=== PATIENT | male | born 1995 | race Caucasian/White ===

== ENCOUNTER 2020-03-23 15:04 | Emergency (ER) | payer OTHER, SELFPAY ==
--- NOTE | 2020-03-23 14:56 | ECG_ITS ---
APPROVED REPORT Exam: Resting ECG HR:128 bpm ECG Measurements Heart Rate 128 AXES ID 114 P 79 QRSd 80 QRS 77 QT 290 T 14 QTc 423 <Conclusion> Sinus tachycardia Right atrial enlargement Nonspecific ST abnormality Abnormal ECG Electronically signed by : Sonny Prieto, 03/28/2020 17:14:03
[2020-03-23 15:04] VITALS: BP 159/96; PULSE 154; RESP 20; TEMP 36.8; O2SAT 100; BMI 20.3
--- NOTE | 2020-03-23 15:09 | XR_ITS ---
PROCEDURE: XR CHEST 2V CLINICAL HISTORY: cp, tachy COMPARISON: CXR2V XR chest 2V from 02/08/2019 FINDINGS: The cardiomediastinal silhouette and pulmonary vascularity are within normal limits. The lungs are clear without infiltrates, suspicious nodules, or pleural effusions. No acute bony abnormalities. IMPRESSION: No acute findings. Dictated by: Josesito Esquivel MD 03/23/2020 16:38 Electronically signed by Josesito Esquivel MD in [place] 03/23/2020 16:38
[2020-03-23 15:17] LABS: Basophils % 0.3 % (0.1-2.0); Eosinophils % 0.3 % (0.1-12.0); Hematocrit 44.8 % (42.0-52.0); Hemoglobin 16.5 g/dL (14.1-18.0); Lymphocytes # 1.7 K/mm3 (0.7-4.5); Lymphocytes % 15.9 % (10-50); Mean Corpuscular HGB Conc 36.8 g/dL (31.8-35.4); Mean Corpuscular Hemoglobin 31.3 pg (27.0-31.2); Mean Corpuscular Volume 85.1 fl (80-94); Mean Platelet Volume 7.8 fl (7.4-10.4); Monocytes # 0.5 K/mm3 (0.1-1.0); Monocytes % 4.1 % (1.7-9.3); Neutrophils # 8.7 K/mm3 (1.8-7.8); Neutrophils % 79.5 % (37.0-80.0); Platelet Count 277 K/mm3 (142-424); Red Blood Count 5.26 M/mm3 (4.60-6.20); White Blood Count 10.9 K/mm3 (4.8-10.8)
[2020-03-23 15:18] LABS: Chloride 102 mmol/L (98-107); Sodium 139 mmol/L (136-145)
[2020-03-23 15:21] LABS: Blood Urea Nitrogen 13 mg/dl (9-20); Carbon Dioxide 29 mmol/L (22.0-30.0); Creatinine Clearance Estimated 106 mL/min (50-200); Estimated Glomerular Filt Rate 104 ml/min (>60); GFR (African American) 125 ML/MIN (>60)
[2020-03-23 15:22] LABS: Calcium 10.2 mg/dl (8.4-10.2); Glucose 154 mg/dl (74-100)
[2020-03-23 15:34] VITALS: BP 155/90; PULSE 92; RESP 20; O2SAT 99
[2020-03-23 15:36] LABS: Troponin I < 0.01 ng/ml (0.00-0.034)
[2020-03-23 15:39] LABS: T4 (Thyroxine) 8.9 ug/dl (5.53-11.0)
[2020-03-23 15:40] VITALS: BP 168/105
[2020-03-23 15:53] LABS: Thyroid Stimulating Hormone 1.75 uIU/mL (0.465-4.68)
--- NOTE | 2020-03-23 16:28 | HMH.EDCP ---
ED Disposition Clinical Impression: Tachycardia Disposition: Home, Self-Care Condition on Discharge: Good Instructions: DI for Atypical Chest Pain Prescriptions: Metoprolol Succinate [Metoprolol Succinate 25mg Tablet*] 25 mg PO DAILY 30 Days #30 tab Transmission Status: Pending to [facility] Referrals: Johnathan Lao MD [Primary Care Provider] - - Critical Care Critical Care Time: No Attestation: On 03/23/20, the high probability of a clinically significant, sudden or life threatening deterioration of the following system(s) required my full and direct attention, intervention and personal management. The time I documented below is in addition to time spent performing reported procedures but includes the following listed in this critical care notation. Medical Decision Making - Medical Records Medical records reviewed: Yes: I reviewed the patient's medical records. - Lopez Inquiry Pt receiving controlled substance: No Vital Signs: 03/23/20 15:04 03/23/20 15:34 03/23/20 15:40 Temperature 98.3 F Temperature Source Oral Pulse Rate [Right] 154 H 92 H Respiratory Rate 20 20 Blood Pressure 168/105 H Blood Pressure [Right Arm] 159/96 H 155/90 H Blood Pressure Mean [Right Arm] 117 111 Blood Pressure Source [Right Arm] Automatic Cuff Blood Pressure Position [Right Arm] Sitting 02 Sat by Pulse Oximetry 100 99 Oxygen Delivery Method Room Air - Lab Data Lab results reviewed: Yes: I reviewed the patient's lab results. Lab Results 03/23/20 15:00: WBC 10.9 H, RBC 5.26, Hgb 16.5, Hct 44.8, MCV 85.1, MCH 31.3 H, MCHC 36.8 H, RDW 13.0, Plt Count 277, MPV 7.8, Neut % (Auto) 79.5, Lymph % (Auto) 15.9, Burke % (Auto) 4.1, Eos % (Auto) 0.3, Baso % (Auto) 0.3, Neut # (Auto) 8.7 H, Lymph # (Auto) 1.7, Burke # (Auto) 0.5, Eos # (Auto) 0.0, Baso # (Auto) 0.0 03/23/20 15:00: Sodium 139, Potassium 4.0, Chloride 102, Carbon Dioxide 29, Anion Gap 12.0, BUN 13, Creatinine 0.90, Estimated Creat Clear 106, Estimated GFR 104, Est GFR ( Amer) 125, Glucose 154 H, Calcium 10.2, Troponin I < 0.01, TSH 1.75, Thyroxine (T4) 8.9 Result diagrams: 03/23/20 15:00 03/23/20 15:00 Orders (Tests/Meds): ED MEDICATIONS Discontinued Medications Generic Name Dose Route Start Last Admin Trade Name Freq PRN Reason Stop Dose Admin Sodium Chloride 1,000 mls @ 999 mls/hr 03/23/20 15:15 03/23/20 15:40 Sod Chlor 0.9% 1000ml Bag IV 03/23/20 16:15 999 mls/hr .Q1H1M YUE Administration Labetalol HCl 5 mg 03/23/20 15:18 03/23/20 15:40 Labetalol 5mg/Ml 20ml Mdv IV 03/23/20 15:19 5 mg ONCE ONE Administration ORDERS Category Date Time Status XR chest 2V Stat Exams 03/23/20 15:09 Taken Troponin I Q3H Lab 03/23/20 18:15 Ordered Troponin I Q3H Lab 03/23/20 21:15 Ordered ECG Request by Dr/Nse Stat Y 03/23/20 15:09 Ordered Chest Pain HPI - General Chief Complaint: Chest Pain Stated Complaint: CP Time Seen by Provider: 03/23/20 16:00 Mode of Arrival: Ambulatory Source of Information: Patient Limitations: No Limitations Description of Symptoms (Recalled from ER Triage Doc. by RN): Pt states he began to have sharp chest pain in the center of his chest a nausea this am. - History of Present Illness HPI narrative: 24-year-old male presents with sinus tachycardia. He states that his heart rate started becoming elevated earlier today and he has had a slight fluttering and pressure sensation in his chest since then. Here in the ED his vital signs are stable but his heart rate is in the 140s. He is in sinus tachycardia. And it is stable. MD complaint: other - Related Data Previous Rx's Medication Instructions Recorded silver sulfadiazine 1 % topical 1 applic TOPICAL BID 7 Days #20 g 05/17/19 cream Metoprolol Succinate [Metoprolol 25 mg PO DAILY 30 Days #30 tab 03/23/20 Succinate 25mg Tablet*] Allergies Allergy/AdvReac Type Severity Reaction Stat
[2020-03-23 16:50] VITALS: BP 141/82; PULSE 76; RESP 20; TEMP 36.8; O2SAT 98
== END 2020-03-23 16:50 | disposition home or self-care (01) ==
PROVIDERS: Emergency Provider Family Medicine; PCP Internal Medicine Adolescent Medicine
DX: R00.0 Tachycardia, unspecified (principal); R07.9 Chest pain, unspecified; Z90.09 Acquired absence of other part of head and neck; Z79.899 Other long term (current) drug therapy
CPT/HCPCS: 71046; 80048; 84436; 84443; 84484; 85025; 93005; 96365; 96375; 99283

== ENCOUNTER 2020-05-11 14:24 | Emergency (ER) | payer OTHER, SELFPAY ==
[2020-05-11 16:03] VITALS: BP 139/91; PULSE 65; RESP 20; TEMP 36.8; O2SAT 99
--- NOTE | 2020-05-11 16:28 | HMH.EDUTC ---
[facility] [place] Clinical Impression: Viral syndrome Disposition: Home, Self-Care Condition on Discharge: Good Instructions: Preventing the Spread of Coronavirus Discharge Instructions Additional Instructions: You have been tested for COVID19. These results are generally available in 48-72 hours. Please act as if you are positive and quarantine yourself until these test results are available. Prescriptions: Brompheniramine/Pseudoephed/Dm [Bromfed Dm Cough Syrup] 10 ml PO Q4-6H 10 Days #180 ml Transmission Status: Pending to [facility] Referrals: Johnathan Lao MD [Primary Care Provider] - Time of Disposition: 16:31 Medical Decision Making - Lopez Inquiry Pt receiving controlled substance: No Vital Signs: 05/11/20 16:03 Temperature 98.2 F Temperature Source Oral Pulse Rate [Right Brachial] 65 Respiratory Rate 20 Blood Pressure [Right Arm] 139/91 H Blood Pressure Mean [Right Arm] 107 Blood Pressure Source [Right Arm] Automatic Cuff Blood Pressure Position [Right Arm] Sitting 02 Sat by Pulse Oximetry 99 Oxygen Delivery Method Room Air Orders (Tests/Meds): ORDERS Category Date Time Status SARS-CoV-2, [place] ([place]) Stat Lab 05/11/20 16:16 Ordered [facility] [place] - General Stated complaint: Coughing congestion; vomiting; diarrhea Time Seen by Provider: 05/11/20 16:28 Mode of Arrival: Ambulatory Source of Information: Patient Limitations: No Limitations Description of Symptoms (Recalled from Triage Doc. by RN): PATIENT C/O SOA, DIARRHEA, DRY COUGH AND CONGESTION X 2 WEEKS HEENT Symptoms (Recalled from RN notes): Yes Resp Symptoms (Recalled from RN notes): Yes Skin Symptoms (Recalled from RN notes): No MS Symptoms (Recalled from RN notes): No Functional Status (Recalled from RN notes): WNL - History of Present Illness Provider Complaint: Dry cough, congestion, chest pain, SOA, diarrhea X 2 weeks. NO fever. Treatments prior to arrival: none - Related Data Previous Rx's Medication Instructions Recorded silver sulfadiazine 1 % topical 1 applic TOPICAL BID 7 Days #20 g 05/17/19 cream Metoprolol Succinate [Metoprolol 25 mg PO DAILY 30 Days #30 tab 03/23/20 Succinate 25mg Tablet*] Brompheniramine/Pseudoephed/Dm 10 ml PO Q4-6H 10 Days #180 ml 07/31/20 [Bromfed Dm Cough Syrup] Allergies Allergy/AdvReac Type Severity Reaction Status Date / Time codeine [CODEINE] Allergy Unknown MAKES Verified 05/17/19 16:38 HYPERACTIVE - Worker's Comp Is this a Worker's Comp case?: No [facility] History - Hepatitis A Screen Drug use history?: No High risk sexual behaviors?: No History of sexually transmitted infection?: No Currently employed?: No Childcare worker?: No Do you have indoor plumbing?: Yes Do you have electricity?: Yes Attestation statement:: This patient has been screened for Hepatitis A risk factors. I have reviewed the patient's past medical history: Yes Medical History: Denies:: Diabetes Mellitus Type 1, Diabetes Mellitus Type 2 Laterality Cases: Bilateral: Tonsillectomy Other Surgeries: Yes: Other Amputation: No Fractures: No Comment: [place] teeth removal, Frenalectomy - Social History Smoking Status: Never smoker Alcohol Intake: never Substance Use Type: denies use Occupational Status: other Housing: house Household Members: spouse, children, family Family Hx:: Diabetes, Cancer, Heart Attack, Stroke, Hypertension, Hyperlipidemia, Thyroid Disorder ROS Obtained: Yes All systems reviewed & no additional complaints - Constitutional Constitutional: Reports body ache, Reports fatigue, Denies fever(s), Reports malaise - Respiratory Respiratory: Yes cough, Yes dyspnea Physical Exam - General General appearance: alert, in no apparent distress - Head Head exam: atraumatic, normocephalic, normal inspection - Eye Eye exam: Present: normal appearance, PERRL, EOMI - ENT ENT exam: Present: normal exam, normal oropharynx, mucous membranes
[2020-05-11 16:37] VITALS: BP 139/91; PULSE 65; RESP 20; TEMP 36.8; O2SAT 99
[2020-05-13 09:51] LABS: Covid-19 Nasal PCR Sendout UK Not Detected
== END 2020-05-11 16:42 | disposition home or self-care (01) ==
PROVIDERS: Emergency Provider Physician Assistant; PCP Internal Medicine Adolescent Medicine
DX: B34.9 Viral infection, unspecified (principal); Z03.818 Encounter for observation for suspected exposure to other biological agents ruled out
CPT/HCPCS: 99201; U0003

== ENCOUNTER → 2021-05-05 09:09 | Outpatient (CLI) | payer OTHER, SELFPAY ==
[2021-05-05 09:25] LABS: Adenovirus F 40/41, stool Not Detected (NotDetected); Astrovirus Not Detected (NotDetected); Campylobacter Not Detected (NotDetected); Clostridium Difficile A/B, PCR Not Detected (NotDetected); Cryptosporidium Not Detected (NotDetected); Cyclospora Cayetanesis Not Detected (NotDetected); Entamoeba histolytica Not Detected (NotDetected); Enteroaggregative E coli Not Detected (NotDetected); Enteropathogenic E coli Not Detected (NotDetected); Enterotoxigenic E coli Not Detected (NotDetected); Giardia lamblia Not Detected (NotDetected); Norovirus Not Detected (NotDetected); Plesimonas Shigalloides, PCR Not Detected (NotDetected); Rotavirus A Not Detected (NotDetected); Salmonella, PCR Not Detected (NotDetected); Sapovirus Not Detected (NotDetected); Shiga-like toxin E coli Not Detected (NotDetected); Shigella Enterovasive E coli Not Detected (NotDetected); Vibrio Cholerae Not Detected (NotDetected); Vibrio, PCR Not Detected (NotDetected); Yersinia Entercolitica, PCR Not Detected (NotDetected)
== END ==
LOC: LAB 09:10 → LAB.DROPOF 05-06 08:13
PROVIDERS: PCP Internal Medicine Adolescent Medicine; Visit Provider Internal Medicine Adolescent Medicine
DX: K52.9 Noninfective gastroenteritis and colitis, unspecified (principal)
CPT/HCPCS: 87507

== ENCOUNTER 2023-02-23 08:28 | Emergency (ER) | payer OTHER, SELFPAY ==
[2023-02-23 08:35] VITALS: BP 154/83; PULSE 97; RESP 21; TEMP 37.4; O2SAT 99; BMI 23.1
[2023-02-23 08:50] LABS: UTC Strep Screen (Rapid) Negative (Negative)
[2023-02-23 08:55] VITALS: BP 154/83; PULSE 97; RESP 21; TEMP 37.4; O2SAT 99
--- NOTE | 2023-02-23 08:58 | EXP.UTC ---
Discharge Plan Disposition Patient Disposition: Home, Self-Care Condition: Good Prescriptions Prescriptions: New azithromycin [Zithromax] 250 mg tablet 250 mg PO UD DOSE PK Qty: 6 0RF Rx Instructions: Take two (2) tablets today, then one (1) tablet days #2 thru #5 benzonatate [benzonatate] 100 mg capsule 100 mg PO TIDP PRN (Reason: Cough) Qty: 30 0RF ondansetron 4 mg Tablet,Disintegrating 4 mg PO Q8H PRN (Reason: Nausea) Qty: 12 0RF No Action silver sulfadiazine [Silvadene] 1 % cream 1 applic TOPICAL BID 7 Days Qty: 20 0RF Rx Instructions: apply a 1.5 mm thickness gcskwuufhvvxsic-tncsboyqj-PI 118 ML syrup 10 ml PO Q4-6H 10 Days Qty: 180 0RF metoprolol succinate 25 MG tablet extended release 24 hr 25 mg PO DAILY 30 Days Qty: 30 2RF Referrals Follow up/Referrals: Sonny Prieto MD [Primary Care Provider] - See instructions Activity Restrictions/Add. Instructions Additional Instructions/Restrictions: Drink plenty of fluids. Take ibuprofen for pain or fever. Take the medications as directed. Follow up with your regular doctor. GO TO THE ER FOR ANY WORSENING SYMPTOMS Clinical Impressions Clinical Impression: Viral syndrome Stand Alone Forms Stand Alone Forms: Work/School Release Instructions Patient Instructions: Coronavirus Disease 2019, Preventing the Spread of Coronavirus Discharge Instructions Discharge ED Provider[place] [facility] [place] General Stated complaint: sore throat,chills,cough,runny nose Mode of Arrival: Ambulatory Source of Information: Patient Limitations: No Limitations Time Seen by Provider: 02/23/23 08:58 HEENT Symptoms (Recalled from RN notes): Yes Resp Symptoms (Recalled from RN notes): No Skin Symptoms (Recalled from RN notes): No MS Symptoms (Recalled from RN notes): No Functional Status (Recalled from RN notes): WNL History of Present Illness Provider Complaint: His mother states that for the past 2 days the has had sore throat, low grade fever, and malaise. Related Data Previous Rx's Medication Instructions Recorded silver sulfadiazine 1 % topical 1 applic topical BID 2nd degree 05/17/19 cream (Silvadene) burn 7 days #20 grams metoprolol succinate 25 mg 25 mg PO DAILY 30 days #30 tabs 03/23/20 tablet,extended release 24 hr ntwlpymopiheeih-vnykkddanoyrwlj-FG 10 ml PO Q4-6H 10 days #180 mL 05/11/20 2 mg-30 mg-10 mg/5 mL oral syrup azithromycin 250 mg tablet 250 mg PO UD DOSE PK #6 tabs 02/23/23 (Zithromax) benzonatate 100 mg capsule 100 mg PO TIDP PRN Cough #30 caps 02/23/23 ondansetron 4 mg disintegrating 4 mg PO Q8H PRN Nausea #12 tabs 02/23/23 tablet Allergies Allergy/AdvReac Type Severity Reaction Status Date / Time codeine [CODEINE] Allergy Unknown MAKES Verified 05/17/19 16:38 HYPERACTIVE Worker's Comp Is this a Worker's Comp case?: No [facility] Disclaimer: The information contained in this section may have been updated after the patient was seen, as this information can be updated by other users. Social History Smoking Status: Never smoker alcohol intake: never substance use type: denies use current occupational status: other Travel in the last 8 weeks: None household members: spouse, family and children housing: house ROS Obtained: Yes All systems reviewed & no additional complaints except as documented Constitutional Constitutional: Reports chills and Reports fever(s) Eyes Eyes: Denies eye discharge ENT Ears, Nose, Mouth, and Throat: Reports as per HPI Cardiovascular Cardiovascular: Denies chest pain Respiratory Respiratory: Denies chest congestion and Reports cough Gastrointestinal Gastrointestingal: Reports nausea; Denies abdominal pain, constipation, cramping, diarrhea or vomiting Musculoskeletal Musculoskeletal: Denies arthralgias Integumentary/Breasts Skin/Breast: Denies rash Neurologic Neurologic
[2023-02-23 09:22] LABS: UTC Influenza A Antigen Negative (Negative)
[2023-02-23 09:23] LABS: UTC Influenza B Antigen Negative (Negative)
== END 2023-02-23 09:38 | disposition home or self-care (01) ==
PROVIDERS: Emergency Provider Nurse Practitioner Family; PCP Internal Medicine Adolescent Medicine
DX: R50.9 Fever, unspecified (principal); R07.0 Pain in throat; R53.81 Other malaise; B34.9 Viral infection, unspecified
CPT/HCPCS: 87635; 87804; 87880; 99212; 99214; C9803; G0463; U0003; U0005

== ENCOUNTER 2023-07-05 15:42 | Emergency (ER) | payer OTHER, SELFPAY ==
[2023-07-05 16:30] VITALS: BP 135/86; PULSE 84; RESP 18; TEMP 37.9; O2SAT 99; BMI 23.1
[2023-07-05 16:48] LABS: UTC Influenza A Antigen Negative (Negative); UTC Influenza B Antigen Negative (Negative)
[2023-07-05 16:59] LABS: UTC Influenza A Antigen Negative (Negative); UTC Influenza B Antigen Negative (Negative)
--- NOTE | 2023-07-05 17:08 | EXP.UTC ---
Discharge Plan Disposition Patient Disposition: Home, Self-Care Condition: Good Prescriptions Prescriptions: New ynlanjnnxjvzajt-ytdcaoxln-FH [Bromfed DM] 2-30-10 mg/5 mL syrup 10 ml PO Q6H PRN (Reason: cold symptoms) Qty: 200 0RF No Action metoprolol succinate 25 MG tablet extended release 24 hr 25 mg PO DAILY 30 Days Qty: 30 2RF Referrals Follow up/Referrals: Sonny Prieto MD [Primary Care Provider] - See instructions Activity Restrictions/Add. Instructions Additional Instructions/Restrictions: May return to work on Saturday 07/07 Clinical Impressions Clinical Impression: Acute upper respiratory infection Instructions Patient Instructions: DI for Viral Upper Respiratory Infection -- Adult Discharge ED Provider: Lauren Ponce [facility] General Stated complaint: fever Mode of Arrival: Ambulatory Source of Information: Patient Limitations: No Limitations Time Seen by Provider: 07/05/23 16:52 Description of Symptoms (Recalled from Triage Doc. by RN): High fever, body aches, cough, and pain when he coughs HEENT Symptoms (Recalled from RN notes): Yes Resp Symptoms (Recalled from RN notes): No Skin Symptoms (Recalled from RN notes): No MS Symptoms (Recalled from RN notes): No Functional Status (Recalled from RN notes): n/a History of Present Illness Provider Complaint: Pt states that he had a fever of 102.1 this morning. He reports body aches, cough, runny nose, and ear pain. He has taken Tylenol and Robitussin for his symptoms. Son was sick with a virus last week with similar symptoms. Related Data Previous Rx's Medication Instructions Recorded metoprolol succinate 25 mg 25 mg PO DAILY 30 days #30 tabs 03/23/20 tablet,extended release 24 hr aaxnbfppahxyovd-wwyeihpcebaixum-HE 10 ml PO Q6H PRN cold symptoms 07/05/23 2 mg-30 mg-10 mg/5 mL oral syrup #200 mL (Bromfed DM) Allergies Allergy/AdvReac Type Severity Reaction Status Date / Time codeine [CODEINE] Allergy Unknown MAKES Verified 07/05/23 16:40 HYPERACTIVE Worker's Comp Is this a Worker's Comp case?: No [facility] Disclaimer: The information contained in this section may have been updated after the patient was seen, as this information can be updated by other users. Social History Smoking Status: Never smoker alcohol intake: never substance use type: denies use current occupational status: other Travel in the last 8 weeks: None household members: spouse, family and children housing: house ROS Obtained: Yes All systems reviewed & no additional complaints except as documented Constitutional Constitutional: Reports system reviewed and no additional complaints, except as documented, Reports anorexia, Reports fatigue, Reports fever(s) and Reports malaise Eyes Eyes: Reports system reviewed and no additional complaints, except as documented ENT Ears, Nose, Mouth, and Throat: Reports system reviewed and no additional complaints, except as documented, Reports nasal congestion and Reports nasal discharge Cardiovascular Cardiovascular: Reports system reviewed and no additional complaints, except as documented Respiratory Respiratory: Reports system reviewed and no additional complaints, except as documented and Reports cough Gastrointestinal Gastrointestingal: Reports system reviewed and no additional complaints, except as documented Genitourinary Male Genitourinary: Reports system reviewed and no additional complaints, except as documented Musculoskeletal Musculoskeletal: Reports system reviewed and no additional complaints, except as documented Integumentary/Breasts Skin/Breast: Reports system reviewed and no additional complaints, except as documented Neurologic Neurologic: Reports system reviewed and no additional complaints, except as documented Endocrine Endocrine: Reports system reviewed and no additional complaints, except as documented and Reports fatigue H
[2023-07-05 17:35] VITALS: BP 135/86; PULSE 84; RESP 18; TEMP 37.6; O2SAT 99
== END 2023-07-05 17:35 | disposition home or self-care (01) ==
PROVIDERS: Emergency Provider Nurse Practitioner Family; PCP Internal Medicine Adolescent Medicine
DX: J06.9 Acute upper respiratory infection, unspecified (principal); R50.9 Fever, unspecified; B34.9 Viral infection, unspecified
CPT/HCPCS: 87635; 87804; 99212; 99214; G0463